=== PATIENT | male | born 1990 | race Caucasian/White ===

== ENCOUNTER 2017-01-23 07:00 | Emergency (ER) | payer MEDICAID ==
[~2017-01-23] VITALS: Ht 182.9 cm; Wt 92.7 kg
[2017-01-23] MEDS ORDERED: LITH600C PO (07:19)
[2017-01-23] MEDS ORDERED: FAMOTIDINE 20 MG TABLET PO ONE (07:30)
[2017-01-23] MEDS ORDERED: MAALOX/HYOSCYAMINE/LIDOCAINE 45 ML BOTTLE PO ONE (07:30)
[2017-01-23] MEDS ORDERED: MAALOX/HYOSCYAMINE/LIDOCAINE 45 ML BOTTLE ONE (07:34)
[2017-01-23] MEDS ORDERED: FAMOTIDINE 20 MG TABLET ONE (07:34)
[2017-01-23 07:55] LABS: HEMOGLOBIN 16.5 g/dL (13.7-18.0)
[2017-01-23] MEDS ORDERED: PLEASE ENTER ALLERGIES MC SCH ×2 (08:00)
[2017-01-23 08:04] LABS: ASPARTATE AMINO TRANSFERASE 23 U/L (15-37); BLOOD UREA NITROGEN 12 mg/dL (7-18)
[2017-01-23 08:32] VITALS: BP 123/70
== END 2017-01-23 08:34 | disposition home or self-care (01) ==
LOC: ED 07:59
DX: K29.00 Acute gastritis without bleeding (principal); R10.13 Epigastric pain; F31.9 Bipolar disorder, unspecified
CPT/HCPCS: 36415; 76700; 80053; 83690; 85025; 86677

== ENCOUNTER → 2018-03-07 | Outpatient (CLI) | payer OTHER ==
[~2018-03-07] MED LIST: LITH600C PO
== END ==
LOC: RAD 09:26
PROVIDERS: ATTEND Internal Medicine Gastroenterology
DX: R10.32 Left lower quadrant pain (principal); K59.00 Constipation, unspecified; R19.7 Diarrhea, unspecified; R11.2 Nausea with vomiting, unspecified
CPT/HCPCS: 74018

== ENCOUNTER → 2018-05-20 | Outpatient (CLI) | payer MEDICAID ==
[~2018-05-20] MED LIST changes: +SINCALIDE (KINEVAC) 5 MCG ONE
== END | disposition home or self-care (01) ==
LOC: PETCFH 08:44
PROVIDERS: ATTEND Internal Medicine Gastroenterology
DX: K59.00 Constipation, unspecified (principal); R11.2 Nausea with vomiting, unspecified; R10.32 Left lower quadrant pain; R19.7 Diarrhea, unspecified
CPT/HCPCS: 78227; A9537; J2805

== ENCOUNTER 2020-06-01 15:21 | Emergency (ER) | payer MEDICAID ==
[~2020-06-01] VITALS: Ht 182.9 cm; Wt 103.3 kg
[~2020-06-01 15:21] MED LIST changes: -SINCALIDE (KINEVAC) 5 MCG ONE
[2020-06-01 16:32] VITALS: BP 137/100
[2020-06-01 16:39] LABS: BASOPHILS # (AUTO) 0.04 x10^3/uL (0-0.1); BASOPHILS % (AUTO) 1 % (0-1); EOSINOPHILS # (AUTO) 0.13 x10^3/uL (0-0.4); EOSINOPHILS % (AUTO) 2 % (1-7); LYMPHOCYTES # (AUTO) 1.93 x10^3/uL (1-3.4); LYMPHOCYTES % (AUTO) 29 % (22-44); MD NO; MEAN CORPUSCULAR HEMOGLOBIN 30.5 pg (27.5-34.5); MEAN CORPUSCULAR HGB CONC 33.5 g/dL (33.2-36.2); MEAN CORPUSCULAR VOLUME 90.9 fL (81-97); MEAN PLATELET VOLUME 9.3 fL (7.4-10.4); MONOCYTES % (AUTO) 7 % (2-9); NEUTROPHILS # (AUTO) 4.19 x10^3/uL (1.8-6.8); NEUTROPHILS % (AUTO) 62 % (42-75); PLATELET COUNT 217 x10^3/uL (130-400); RED CELL DISTRIBUTION WIDTH 13.3 % (9.4-14.8)
[2020-06-01 16:52] LABS: ANION GAP 5 mmol/L (5-15); CALCIUM 8.9 mg/dL (8.5-10.1); CHLORIDE 107 mmol/L (98-107); CREATININE 1.06 mg/dL (0.7-1.3)
== END 2020-06-01 18:41 | disposition home or self-care (01) ==
LOC: ED 18:35
DX: R42 Dizziness and giddiness (principal); R51 Headache; H53.8 Other visual disturbances; R06.9 Unspecified abnormalities of breathing
CPT/HCPCS: 36415; 70450; 71045; 80048; 82040; 85025; 93005; 99285

== ENCOUNTER 2021-01-10 11:29 | Emergency (ER) | payer MEDICAID ==
[~2021-01-10] VITALS: Ht 182.9 cm; Wt 100.7 kg
[2021-01-10] MEDS ORDERED: ONDANSETRON ODT 4 MG PO ONE (12:00)
[2021-01-10] MEDS ORDERED: ONDANSETRON ODT 8 MG ONE (12:01)
--- NOTE | 2021-01-10 12:13 | NUR ---
home assessment nurse completed, pt taken to radiology.
--- NOTE | 2021-01-10 12:30 | NUR ---
Pt back to room without acute change in condition noted while off unit.
--- NOTE | 2021-01-10 12:45 | NUR ---
Report given to JESSICA Devi and care transferred back to her after meal break.
[2021-01-10 13:52] VITALS: BP 124/72
== END 2021-01-10 13:53 | disposition home or self-care (01) ==
LOC: ED 13:49
DX: S06.0X9A Concussion with loss of consciousness of unspecified duration, initial encounter (principal); S00.93XA Contusion of unspecified part of head, initial encounter; R11.0 Nausea; X58.XXXA Exposure to other specified factors, initial encounter; Y93.89 Activity, other specified; Y92.89 Other specified places as the place of occurrence of the external cause; Y99.8 Other external cause status
CPT/HCPCS: 70450; 99284; Q0162